=== PATIENT | male | born 1935 | race Caucasian/White ===

== ENCOUNTER 2017-02-07 21:12 | Observation (INO) | payer MEDICARE, OTHER ==
[2017-02-07] MEDS ORDERED: Morphine 4 MG/ML Syringe IVPUSH ONE (21:30)
[2017-02-07] MEDS ORDERED: Morphine 4 MG/ML Syringe IM ONE (21:53)
--- NOTE | 2017-02-07 21:53 | EDM.PDOC ---
ED HPI Trauma - General Chief Complaint: Lower Extremity Injury/Pain Stated Complaint: left hip injury post fall Time Seen by Provider: 02/07/17 21:25 Source: Reports: EMS - History of Present Illness INITIAL COMMENTS - FREE TEXT/NARRATIVE: Pt was going to step up on the sidewalk and missed and fell. He landed on his left hip. No LOC. bystander helped him into his pickup but he had so much pain that he couldn't move so ambulance was called. He is having pain in the left hip and pelvis. Left leg is rotated outward and shorter than the right. Has increase in pain with any movement. Did not take lasix today. Has edema 1 + bilaterally. Has small abrasion that is weeping to the right lower leg and the left lower leg. Last food and oral intake was about 1730 tonight. Symptom Onset Date: 02/07/17 Symptom Onset Time: 19:30 Occurred When: just prior to arrival Occurred Where: other Method of Injury: fall Severity: severe Pain/Injury Location: Reports: lower extremity, left Consciousness: Reports: no loss of consciousness, remembers incident Associated Symptoms: Reports: no other symptoms Allergies/ADRs: Allergies No Known Allergies Allergy (Verified 03/14/16 04:17) Home Medications: Ambulatory Orders Latanoprost 1 drop EYEBOTH BEDTIME 11/25/14 [Confirmed 03/07/16] Metoprolol Succinate [Toprol Xl] 100 mg PO DAILY 11/25/14 [Confirmed 03/07/16] Nitroglycerin [Nitrostat] 0.4 mg SL ASDIRECTED PRN 11/25/14 [Confirmed 03/07/16] Warfarin [Coumadin] 1.5 mg PO DAILY 11/25/14 [Confirmed 03/07/16] atorvaSTATin Calcium [Atorvastatin Calcium] 20 mg PO BEDTIME 11/25/14 [ Confirmed 03/07/16] Lisinopril [Zestril] 20 mg PO BID 02/18/16 [Confirmed 03/07/16] Pantoprazole [ProTONIX] 40 mg PO DAILY 03/07/16 [Confirmed 03/07/16] Furosemide 40 mg PO DAILY #30 03/08/16 [Confirmed 03/07/16] Metoprolol Succinate [Toprol XL] 50 mg PO BEDTIME 02/07/17 [Confirmed 02/07/17] Warfarin [Coumadin] 3 mg PO ASDIRECTED 02/07/17 [Confirmed 02/07/17] Past Medical History HEENT History: Reports: Cataract Cardiovascular History: Reports: Heart Failure, Hypertension, Pacemaker, Stents Gastrointestinal History: Reports: Cholelithiasis, GI bleed, PUD Musculoskeletal History: Reports: Gout Hematologic History: Reports: Blood transfusion(s) - Past Surgical History HEENT Surgical History: Reports: Cataract surgery Cardiovascular Surgical History: Reports: Pacer GI Surgical History: Reports: Appendectomy, Cholecystectomy, Colonoscopy Musculoskeletal Surgical History: Reports: Arthroscopic knee, Other (see below) Other Musculoskeletal Surgeries/Procedures:: back surgery Social & Family History - Family History Family Medical History: Noncontributory - Tobacco Use Smoking Status *Q: Former Smoker Years of Tobacco use: 60 Used Tobacco, but Quit: Yes Month Tobacco Last Used: 10/24 Second Hand Smoke Exposure: No - Alcohol Use Days Per Week of Alcohol Use: 0 - Recreational Drug Use Recreational Drug Use: No - Living Situation & Occupation Living situation: Reports: single, alone Occupation: retired Review of Systems - Review of Systems Review Of Systems: See Below Constitutional: Reports: no symptoms Eyes: Reports: no symptoms Ears: Reports: no symptoms Nose: Reports: no symptoms Mouth/Throat: Reports: no symptoms Respiratory: Reports: No Symptoms Cardiovascular: Reports: edema GI/Abdominal: Reports: No symptoms Musculoskeletal: Reports: leg pain (see HPI) Skin: Reports: bruising (to left hand, wrist, elbow.), wound (see HPI) Neurological: Denies: Confusion, Dizziness, Headache Psychiatric: Denies: confusion Trauma Exam - Physical Exam Exam: See Below Exam Limited By: No limitations General Appearance: Reports: alert, severe distress Head: Reports: atraumatic, normocephalic Ears: Reports: normal external exam, normal canal, normal TMs Nose: Reports: normal inspection Throat/Mouth: Reports: Normal inspection, Normal oropharynx, No airway compromise Neck: Reports: non-tender, full range of motion, normal alignment, normal inspection Respiratory Exam: Reports: no respiratory distress, lungs clear, normal breath sounds, chest non-tender Cardiovascular: Reports: normal peripheral pulses, regular rate, rhythm GI/Abdominal: Reports: normal bowel sounds, soft, non tender, no organomegaly Extremities: Reports: pedal edema (1) Neurologic: Reports: alert, oriented x 3 Skin: Reports: Normal color, Warm/dry - [place] Coma Score Best Eye Response ([place]): (4) open spontaneously Best Verbal Response ([place]): (5) oriented Best Motor Response ([place]): (6) obeys commands [place] Total: 15 Course - Vital Signs Last Recorded V/S: Last Vital Signs Temp 98.4 F 02/07/17 21:12 Pulse 82 02/07/17 21:12 Resp 20 02/07/17 21:12 BP 159/83 H 02/07/17 21:12 Pulse Ox 95 02/07/17 21:12 - Orders/Labs/Meds Orders: Active Orders 24 hr Category Date Time Status Hip Min 2V or 3V Lt [CR] Stat Exams 02/07/17 21:31 Ordered Meds: Medications Discontinued Medications Generic Name Dose Route Start Last Admin Trade Name Doe PRN Reason Stop Dose Admin Morphine Sulfate 4 mg 02/07/17 21:30 Morphine IVPUSH 02/07/17 21:31 ONETIME ONE - Re-Assessments/Exams Free Text/Narrative Re-Assessment/Exam: 02/07/17 22:[address] 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 Due to coumadin he will stay here tonight and be transferred at 0800 in the morning to orthopedics service. Discussed plan with son Baldomero and is in agreement as is the pt. Discussed with pt the admit and transfer, will give pain meds during the night to keep comfortable. Departure - Departure Time of Disposition: 22:33 Disposition: Refer to Observation Condition: fair Clinical Impression: Fracture of neck of femur, hip Fall Qualifiers: Encounter type: initial encounter Qualified Code(s): W19.XXXA - Unspecified fall, initial encounter Forms: ED Department Discharge - Problem List & Annotations (1) Fall SNOMED Code(s): 1604572, 017648795 Code(s): W19.XXXA - UNSPECIFIED FALL, INITIAL ENCOUNTER Status: Acute Priority: High Current Visit: Yes Qualifiers: Encounter type: initial encounter Qualified Code(s): W19.XXXA - Unspecified fall, initial encounter (2) Fracture of neck of femur, hip SNOMED Code(s): 0479705 Code(s): S72.009A - FRACTURE OF UNSP PART OF NECK OF UNSP FEMUR, INIT Status: Acute Priority: High Current Visit: Yes - My Orders Last 24 Hours: My Active Orders 02/07/17 21:31 Hip Min 2V or 3V Lt [CR] Stat - Assessment/Plan Admission H&P: Please use this note as an admission H&P Last 24 Hours: My Active Orders 02/07/17 21:31 Hip Min 2V or 3V Lt [CR] Stat Plan: Pt will be admitted for observation with pain control overnight. Transfer to [facility] in AM. Pt scheduled to leave by S ambulance at 0800.
[2017-02-07] MEDS ORDERED: Sodium Chloride 0.9% 10 ML Syringe FLUSH PRN (23:01)
[2017-02-07] MEDS ORDERED: Lactated Ringers 1,000 ML IV SCH (23:01)
[2017-02-07] MEDS ORDERED: Metoprolol Succinate 100 MG Tab.ER PO SCH (23:36)
[2017-02-07] MEDS: Morphine 2 MG/ML Syringe IVPUSH PRN (23:40)
[2017-02-08] MEDS: Lisinopril 20 MG Tab PO SCH ×2 (00:15→07:00)
[2017-02-08] MEDS: Furosemide 40 MG Tab PO SCH ×2 (00:15→07:00)
[2017-02-08] MEDS ORDERED: Furosemide 40 MG Tab ONE (00:23)
[2017-02-08] MEDS ORDERED: Lisinopril 20 MG Tab ONE (00:24)
[2017-02-08] MEDS: Morphine 2 MG/ML Syringe IVPUSH PRN ×3 (04:22→09:23)
[2017-02-08 04:35] VITALS: BP 166/68
--- NOTE | 2017-02-08 07:19 | PCM.DCSUM1 ---
Discharge Summary - Hospital Course Free Text/Narrative:: Pt fell last evening and has left femoral neck fracture. HPI Initial Comments: Pt fell last evening and sustained left femur fracture. No other injuries noted. No LOC with it. - Discharge Data Discharge Date: 02/08/17 Discharge Disposition: DC/Tfer to Acute Hospital 02 Condition: Good - Discharge Diagnosis/Problem(s) (1) Fall SNOMED Code(s): 3806413, 209126955 ICD Code: W19.XXXA - UNSPECIFIED FALL, INITIAL ENCOUNTER Status: Acute Priority: High Current Visit: Yes Qualifiers: Encounter type: initial encounter Qualified Code(s): W19.XXXA - Unspecified fall, initial encounter (2) Fracture of neck of femur, hip SNOMED Code(s): 0802389 ICD Code: S72.009A - FRACTURE OF UNSP PART OF NECK OF UNSP FEMUR, INIT Status: Acute Priority: High Current Visit: Yes - Patient Summary/Data Complications: none Consults: none Planned Operative Procedure(s) after DC: Is being transfered to [facility] for repair of left hip fracture. - Patient Instructions Diet: NPO Activity: Bedrest - Discharge Plan Home Medications: Home Meds Latanoprost 1 drop EYEBOTH BEDTIME 11/25/14 [History] Metoprolol Succinate [Toprol Xl] 100 mg PO DAILY 11/25/14 [History] Nitroglycerin [Nitrostat] 0.4 mg SL ASDIRECTED PRN 11/25/14 [History] Warfarin [Coumadin] 1.5 mg PO ASDIRECTED 11/25/14 [History] atorvaSTATin Calcium [Atorvastatin Calcium] 20 mg PO BEDTIME 11/25/14 [History] Lisinopril [Zestril] 20 mg PO BID 02/18/16 [History] Pantoprazole [ProTONIX] 40 mg PO DAILY 03/07/16 [History] Furosemide 40 mg PO DAILY #30 03/08/16 [Rx] Metoprolol Succinate [Toprol XL] 50 mg PO BEDTIME 02/07/17 [History] Warfarin [Coumadin] 3 mg PO ASDIRECTED 02/07/17 [History] Forms: ED Department Discharge - Discharge Summary/Plan Comment DC Time >30 min.: Yes Discharge Summary/Plan Comment: Plan is to transfer to [facility] per BLS ambulance for definitive care of left hip fracture. - Patient Data Vitals - Most Recent: Last Vital Signs Temp 98.4 F 02/08/17 04:00 Pulse 60 02/08/17 07:00 Resp 16 02/08/17 04:00 BP 186/76 H 02/08/17 07:00 Pulse Ox 95 02/08/17 04:00 Weight - Most Recent: 176 lb I&O - Last 24 hours: Intake & Output 02/07/17 02/08/17 02/08/17 22:59 06:59 14:59 Intake Total 639 Output Total 225 Balance 414 Lab Results - Last 24 hrs: Laboratory Results - last 24 hr 02/08/17 Range/Units 06:50 PT 31.9 H (9.7-12.3) SEC INR 2.86 H (0.92-1.18) Med Orders - Current: Current Medications Furosemide (Lasix) 40 mg PO DAILY [facility] Last Admin: 02/08/17 07:00 Dose: 40 mg Lactated Ringer's (Ringers, Lactated) 1,000 mls @ 75 mls/hr IV ASDIRECTED [facility] Last Admin: 02/07/17 23:39 Dose: 75 mls/hr Latanoprost (Xalatan 0.005% Ophth Soln) 0 ml EYEBOTH BEDTIME [facility] Lisinopril (Prinivil) 20 mg PO BID [facility] Last Admin: 02/08/17 07:00 Dose: 20 mg Metoprolol Succinate (Toprol Xl) 100 mg PO DAILY [facility] Last Admin: 02/08/17 07:00 Dose: 100 mg Metoprolol Succinate (Toprol Xl) 50 mg PO BEDTIME [facility] Last Admin: 02/07/17 23:45 Dose: 50 mg Morphine Sulfate (Morphine) 2 mg IVPUSH Q2H PRN PRN Reason: Pain (severe 7-10) Last Admin: 02/08/17 06:53 Dose: 2 mg Pantoprazole Sodium (Protonix) 40 mg PO DAILY [facility] Last Admin: 02/08/17 07:00 Dose: 40 mg Sodium Chloride (Saline Flush) 10 ml FLUSH ASDIRECTED PRN PRN Reason: Keep Vein Open Discontinued Medications Furosemide (Lasix) Confirm Administered Dose 40 mg .ROUTE .STK-MED ONE Stop: 02/08/17 00:24 Last Admin: 02/08/17 00:14 Dose: Not Given Lisinopril (Prinivil) Confirm Administered Dose 20 mg .ROUTE .STK-MED ONE Stop: 02/08/17 00:25 Last Admin: 02/08/17 00:15 Dose: Not Given Metoprolol Succinate (Toprol Xl) 100 mg PO DAILY NONA Morphine Sulfate (Morphine) 4 mg IVPUSH ONETIME ONE Stop: 02/07/17 21:31 Last Admin: 02/07/17 21:58 Dose: Not Given Morphine Sulfate (Morphine) 4 mg IM ONETIME ONE Stop: 02/07/17 21:54 Last Admin: 02/07/17 21:58 Dose: 4 mg *Q Meaningful Use (DIS) - VTE *Q VTE Criteria *Q: - Stroke *Q Stroke Criteria *Q: - AMI *Q AMI Criteria *Q:
[2017-02-08] MEDS ORDERED: Morphine 2 MG/ML Syringe IVPUSH ONE (07:26)
[2017-02-08] MEDS ORDERED: Metoprolol Succinate 100 MG Tab.ER PO SCH ×2 (08:00)
[2017-02-08] MEDS ORDERED: Pantoprazole 40 MG Tab.CR PO SCH (08:00)
[2017-02-08] MEDS ORDERED: Latanoprost 0.005% Ophth Soln 2.5 ML Bottle EYEBOTH SCH (20:00)
== END 2017-02-08 09:15 ==
LOC: CC.ED 21:12 → CC.MS 22:58 → UNDOADMOB 22:58 → CC.MS 23:01
PROVIDERS: ADMIT Physician Assistant Medical; ATTEND Family Medicine
DX: S72.002A Fracture of unspecified part of neck of left femur, initial encounter for closed fracture (principal); I10 Essential (primary) hypertension; I50.9 Heart failure, unspecified; W19.XXXA Unspecified fall, initial encounter; Z79.01 Long term (current) use of anticoagulants; Z79.899 Other long term (current) drug therapy; Z90.49 Acquired absence of other specified parts of digestive tract; Z95.0 Presence of cardiac pacemaker; Z98.890 Other specified postprocedural states; Z87.891 Personal history of nicotine dependence
CPT/HCPCS: 36415; 51702; 73502; 80048; 85025; 85610; 93005; 93010; 96372; 96374; 96376; 99217; 99220; 99285; A9270; G0378; J2270; J7120

== ENCOUNTER 2017-03-19 04:23 | Inpatient (IN) | payer MEDICARE, OTHER ==
--- NOTE | 2017-03-19 06:26 | EDM.PDOC ---
ED HPI GENERAL MEDICAL PROBLEM - General Chief Complaint: General Stated Complaint: NAUSEA Time Seen by Provider: 03/19/17 05:30 Source of Information: Reports: Patient, EMS notes reviewed History Limitations: Reports: No limitations - History of Present Illness INITIAL COMMENTS - FREE TEXT/NARRATIVE: Elza is an 81 yo male who presents to the ER via [facility] with complaints of nausea, shortness of breath and elevated blood pressure. [facility] staff noted states his initial blood pressure was 207/137. Upon EMS arrival blood pressure improved to 169/96. Elza states he has been feeling a little short of breath the last few days and constipated. His last bowel movement was on Saturday. He has a history of recent hip fracture and has been getting pain medications which he feels has been plugging him up. States he has been passing a lot of gas. Onset: gradual - Related Data Allergies Allergy/AdvReac Type Severity Reaction Status Date / Time Penicillins Allergy Cannot Verified 03/19/17 04:32 Remember vitamin K2 Allergy Cannot Verified 03/19/17 04:32 Remember Home Meds: Home Meds Metoprolol Succinate [Toprol Xl] 100 mg PO DAILY 11/25/14 [History] Nitroglycerin [Nitrostat] 0.4 mg SL ASDIRECTED PRN 11/25/14 [History] Warfarin [Coumadin] 1 mg PO ASDIRECTED 11/25/14 [History] atorvaSTATin Calcium [Atorvastatin Calcium] 20 mg PO BEDTIME 11/25/14 [History] Lisinopril [Zestril] 20 mg PO BID 02/18/16 [History] Pantoprazole [ProTONIX] 40 mg PO DAILY 03/07/16 [History] Metoprolol Succinate [Toprol XL] 50 mg PO BEDTIME 02/07/17 [History] Warfarin [Coumadin] 1.5 mg PO ASDIRECTED 02/07/17 [History] Ferrous Sulfate 325 mg PO DAILY 03/19/17 [History] Latanoprost [Xalatan 0.005% Ophth Soln] 1 drop EYEBOTH DAILY 03/19/17 [History] Magnesium Oxide 500 mg PO DAILY 03/19/17 [History] Sennosides/Docusate Sodium [Senna-Docusate Sodium] 1 tab PO BID 03/19/17 [ History] traMADol HCl [Tramadol HCl] 50 mg PO QID 03/19/17 [History] Past Medical History HEENT History: Reports: Cataract Cardiovascular History: Reports: Heart Failure, Hypertension, Pacemaker, Stents Gastrointestinal History: Reports: Cholelithiasis, GI bleed, PUD Musculoskeletal History: Reports: Gout Hematologic History: Reports: Blood transfusion(s) - Past Surgical History HEENT Surgical History: Reports: Cataract surgery Cardiovascular Surgical History: Reports: Pacer GI Surgical History: Reports: Appendectomy, Cholecystectomy, Colonoscopy Musculoskeletal Surgical History: Reports: Arthroscopic knee, Hip replacement, Other (see below) Other Musculoskeletal Surgeries/Procedures:: back surgery Social & Family History - Family History Family Medical History: Noncontributory - Tobacco Use Smoking Status *Q: Unknown Ever Smoked Years of Tobacco use: 60 Used Tobacco, but Quit: Yes Month Tobacco Last Used: 10/24 Second Hand Smoke Exposure: No - Alcohol Use Days Per Week of Alcohol Use: 0 - Recreational Drug Use Recreational Drug Use: No - Living Situation & Occupation Living situation: Reports: single, alone Occupation: retired ED ROS GENERAL - Review of Systems Review Of Systems: See Below Constitutional: Reports: diaphoresis. Denies: fever, chills HEENT: Reports: No symptoms Respiratory: Reports: Shortness of Breath. Denies: Wheezing, Cough Cardiovascular: Reports: Dyspnea on exertion, Edema, Orthopnea. Denies: Chest pain, Palpitations GI/Abdominal: Reports: Constipation, Nausea. Denies: Bloody stool, Diarrhea, Vomiting : Reports: no symptoms Musculoskeletal: Reports: leg pain (s/p hip fracture) Skin: Reports: diaphoresis Neurological: Reports: No Symptoms ED EXAM, GENERAL - Physical Exam Exam: See Below Exam Limited By: No limitations General Appearance: alert, no apparent distress Ears: normal external exam, normal canal, hearing grossly normal Nose: normal inspection, no blood Throat/Mouth: Normal inspection, Normal lips, Normal voice, No airway compromise Head: atraumatic, normocephalic Neck: normal inspection, supple Respiratory/Chest: no respiratory distress, decreased breath sounds (bilateral bases). No: rhonchi, wheezing Cardiovascular: normal peripheral pulses, regular rate, rhythm, systolic murmur GI/Abdominal: normal bowel sounds, soft, non tender, no organomegaly, no distention, no mass Extremities: pedal edema (2+ bilateral). No: increased warmth Neurological: alert, oriented, normal cognition, no motor/sensory deficits Psychiatric: normal affect, normal mood Skin Exam: Warm, Dry, Intact. No: Diaphoretic, Mottled EKG INTERPRETATION EKG Date: 03/19/17 Time: 05:00 Rhythm: other (paced) Course - Vital Signs Last Recorded V/S: Last Vital Signs Temp 97 F 03/19/17 05:05 Pulse 70 03/19/17 05:05 Resp 20 03/19/17 05:05 BP 151/72 H 03/19/17 05:05 Pulse Ox 93 L 03/19/17 05:05 - Orders/Labs/Meds Orders: Active Orders 24 hr Category Date Time Status Patient Status Manage Transfer [TRANSFER] Routine ADT 03/19/17 05:52 Ordered Cardiac Monitoring [RC] . DIRECTED Care 03/19/17 05:52 Active Chest 1V Frontal [CR] Stat Exams 03/19/17 04:45 Taken Resuscitation Status Routine Resus Stat 03/19/17 05:55 Ordered Labs: Laboratory Tests 03/19/17 03/19/17 03/19/17 Range/Units 04:55 04:55 04:55 WBC 10.6 H (5.0-10.0) 10^3/uL RBC 3.76 L (4.50-6.00) 10^6/uL Hgb 10.6 L (14.0-18.0) g/dL Hct 33.5 L (40.0-54.0) % MCV 89.1 (82.0-94.0) fL MCH 28.2 (27.0-32.0) pg MCHC 31.6 L (33.0-38.0) g/dL RDW Coeff of Karlo 15.4 H (11.0-15.0) % Plt Count 254 (150-400) 10^3/uL Neut % (Auto) 79.0 (35-85) % Lymph % (Auto) 11.4 (10-55) % [place] % (Auto) 7.1 (0-16) % Eos % (Auto) 2.1 (0-5) % Baso % (Auto) 0.4 (0-3) % Neut # (Auto) 8.41 H (1.80-7.00) 10^3/uL Lymph # (Auto) 1.21 (1.00-4.80) 10^3/uL [place] # (Auto) 0.75 (0.00-0.80) 10^3/uL Eos # (Auto) 0.22 (0.00-0.45) 10^3/uL Baso # (Auto) 0.04 10^3/uL PT 27.4 H (9.7-12.3) SEC INR 2.47 H (0.92-1.18) Sodium 140 (136-145) mEq/L Potassium 4.0 (3.5-5.0) mEq/L Chloride 103 (98-106) mEq/L Carbon Dioxide 28 (21-32) mmol/L BUN 32 H (7-18) mg/dL Creatinine 1.3 (0.7-1.3) mg/dL Est Cr Clr Drug Dosing 46.66 mL/min Estimated GFR (MDRD) 53 L (>=60) mL/min Glucose 120 H (75-99) mg/dL Calcium 8.1 L (8.4-10.1) mg/dL Total Bilirubin 0.7 (0.0-1.0) mg/dL AST 24 (15-37) U/L ALT 15 (12-78) U/L Alkaline Phosphatase 147 H (46-116) U/L Creatine Kinase 41 (35-232) U/L Troponin I 0.070 H (0.00-0.06) ng/mL Total Protein 6.6 (6.4-8.2) g/dL Albumin 2.8 L (3.4-5.0) g/dL Departure - Departure Time of Disposition: 06:31 Disposition: Admitted As Inpatient 65 Clinical Impression: CHF, Congestive heart failure, Elevated troponin, Constipation Forms: ED Department Discharge - Problem List & Annotations (1) CHF, Congestive heart failure SNOMED Code(s): 36769944 Code(s): I50.9 - HEART FAILURE, UNSPECIFIED Status: Acute (2) Constipation SNOMED Code(s): 01180889 Code(s): K59.00 - CONSTIPATION, UNSPECIFIED Status: Acute Qualifiers: Constipation type: unspecified constipation type Qualified Code(s): K59.00 - Constipation, unspecified (3) Elevated troponin SNOMED Code(s): 010964220, 167904634 Code(s): R74.8 - ABNORMAL LEVELS OF OTHER SERUM ENZYMES Status: Acute - Problem List Review Problem List Initiated/Reviewed/Updated: Yes - My Orders Last 24 Hours: My Active Orders 03/19/17 04:45 Chest 1V Frontal [CR] Stat 03/19/17 05:52 Patient Status Manage Transfer [TRANSFER] Routine Cardiac Monitoring [RC] . DIRECTED 03/19/17 05:55 Resuscitation Status Routine - Assessment/Plan Last 24 Hours: My Active Orders 03/19/17 04:45 Chest 1V Frontal [CR] Stat 03/19/17 05:52 Patient Status Manage Transfer [TRANSFER] Routine Cardiac Monitoring [RC] . DIRECTED 03/19/17 05:55 Resuscitation Status Routine Plan: Will admit to Dr. An's services under acute care. Chest x-ray shows CHF exacerbation with consolidation in right lower lobe. IV Lasix to be started. Will repeat cardiac enzymes in 4 hours.
[2017-03-19] MEDS ORDERED: Ondansetron 4 MG/2 ML SDV IV PRN (06:45)
[2017-03-19] MEDS ORDERED: Docusate Sodium 100 MG Cap PO PRN (06:45)
[2017-03-19] MEDS ORDERED: Sodium Chloride 0.9% 10 ML Syringe FLUSH PRN (06:45)
[2017-03-19] MEDS ORDERED: Nitroglycerin 0.4 MG Tab.SL SL PRN (06:45)
[2017-03-19] MEDS ORDERED: Magnesium Hydroxide 400 MG/5 ML Susp 30 ML Cup PO PRN (06:45)
[2017-03-19] MEDS ORDERED: Furosemide 20 MG/2 ML VIAL IVPUSH SCH (07:00)
[2017-03-19] MEDS: Ferrous Sulfate 324 MG Tab.EC PO SCH (08:14)
[2017-03-19] MEDS: Lisinopril 20 MG Tab PO SCH ×2 (08:15→19:58)
[2017-03-19] MEDS: Pantoprazole 40 MG Tab.CR PO SCH (08:15)
[2017-03-19] MEDS: Metoprolol Succinate 100 MG Tab.ER PO SCH (08:16)
[2017-03-19] MEDS: traMADol 50 MG Tab PO SCH ×5 (08:16→20:04)
[2017-03-19] MEDS ORDERED: Furosemide 20 MG/2 ML VIAL IVPUSH ONE (08:25)
[2017-03-19] MEDS: Furosemide 40 MG/4 ML VIAL IVPUSH SCH (15:48)
[2017-03-19] MEDS ORDERED: Furosemide 40 MG/4 ML VIAL IVPUSH SCH ×2 (16:00→20:00)
[2017-03-19] MEDS: Metoprolol Succinate 25 MG Tab.ER PO SCH (19:57)
[2017-03-19] MEDS: atorvaSTATin 20 MG Tab PO SCH (19:58)
[2017-03-19] MEDS: Latanoprost 0.005% Ophth Soln 2.5 ML Bottle EYEBOTH SCH (20:04)
[2017-03-20] MEDS: Pantoprazole 40 MG Tab.CR PO SCH (06:23)
[2017-03-20] MEDS: Ferrous Sulfate 324 MG Tab.EC PO SCH (07:44)
[2017-03-20] MEDS: Furosemide 40 MG/4 ML VIAL IVPUSH SCH ×2 (07:45→17:09)
[2017-03-20] MEDS: Lisinopril 20 MG Tab PO SCH ×2 (08:38→19:58)
[2017-03-20] MEDS: Metoprolol Succinate 100 MG Tab.ER PO SCH (08:38)
[2017-03-20] MEDS: traMADol 50 MG Tab PO SCH ×3 (10:19→17:08)
--- NOTE | 2017-03-20 15:22 | PCM.PN ---
- General Info Date of Service: 03/20/17 Admission Dx/Problem (Free Text): CHF Functional Status: Reports: pain controlled, tolerating diet, ambulating, urinating - Review of Systems General: Reports: Weakness, Fatigue. Denies: Fever HEENT: Reports: no symptoms Pulmonary: Reports: shortness of breath Cardiovascular: Denies: Chest Pain, Palpitations, Lightheadedness Gastrointestinal: Denies: Abdominal pain, Decreased appetite, Diarrhea, Nausea, Vomiting Genitourinary: Reports: frequency Musculoskeletal: Reports: no symptoms Skin: Reports: no symptoms Neurological: Reports: No Symptoms - Patient Data Vitals - most recent: Last Vital Signs Temp 96.8 F 03/20/17 12:00 Pulse 54 L 03/20/17 12:00 Resp 18 03/20/17 12:00 BP 146/65 H 03/20/17 12:00 Pulse Ox 95 03/20/17 12:00 Weight - most recent: 177 lb 14.4 oz I&O - last 24 hours: Intake & Output 03/20/17 03/20/17 03/20/17 06:59 14:59 22:59 Intake Total 100 Output Total 200 Balance -100 Lab Results last 24 hrs: Laboratory Results - last 24 hr 03/20/17 03/20/17 Range/Units 08:40 08:40 WBC 8.8 (5.0-10.0) 10^3/uL RBC 3.77 L (4.50-6.00) 10^6/uL Hgb 10.5 L (14.0-18.0) g/dL Hct 34.3 L (40.0-54.0) % MCV 91.0 (82.0-94.0) fL MCH 27.9 (27.0-32.0) pg MCHC 30.6 L (33.0-38.0) g/dL RDW Coeff of Karlo 16.1 H (11.0-15.0) % Plt Count 259 (150-400) 10^3/uL Neut % (Auto) 68.0 (35-85) % Lymph % (Auto) 21.0 (10-55) % [place] % (Auto) 8.3 (0-16) % Eos % (Auto) 2.1 (0-5) % Baso % (Auto) 0.6 (0-3) % Neut # (Auto) 5.95 (1.80-7.00) 10^3/uL Lymph # (Auto) 1.84 (1.00-4.80) 10^3/uL [place] # (Auto) 0.73 (0.00-0.80) 10^3/uL Eos # (Auto) 0.18 (0.00-0.45) 10^3/uL Baso # (Auto) 0.05 10^3/uL Sodium 142 (136-145) mEq/L Potassium 4.7 (3.5-5.0) mEq/L Chloride 103 (98-106) mEq/L Carbon Dioxide 32 (21-32) mmol/L BUN 30 H (7-18) mg/dL Creatinine 1.3 (0.7-1.3) mg/dL Est Cr Clr Drug Dosing 46.66 mL/min Estimated GFR (MDRD) 53 L (>=60) mL/min Glucose 136 H (75-99) mg/dL Calcium 8.1 L (8.4-10.1) mg/dL Med Orders - Current: Current Medications Atorvastatin Calcium (Lipitor) 20 mg PO BEDTIME [facility] Last Admin: 03/19/17 19:58 Dose: 20 mg Docusate Sodium (Colace) 100 mg PO BID PRN PRN Reason: Constipation Ferrous Sulfate (Ferrous Sulfate) 324 mg PO DAILY [facility] Last Admin: 03/20/17 07:44 Dose: 324 mg Furosemide (Lasix) 40 mg IVPUSH BIDDIURETIC [facility] Last Admin: 03/20/17 07:45 Dose: 40 mg Latanoprost (Xalatan 0.005% Ophth Soln) 0 ml EYEBOTH BEDTIME [facility] Last Admin: 03/19/17 20:04 Dose: 2 drop Lisinopril (Prinivil) 20 mg PO BID [facility] Last Admin: 03/20/17 08:38 Dose: 20 mg Magnesium Hydroxide (Milk Of Magnesia) 30 ml PO Q12H PRN PRN Reason: Constipation Magnesium Oxide (Magnesium Oxide) 500 mg PO DAILY [facility] Last Admin: 03/20/17 07:44 Dose: 500 mg Metoprolol Succinate (Toprol Xl) 100 mg PO DAILY [facility] Last Admin: 03/20/17 08:38 Dose: 100 mg Metoprolol Succinate (Toprol Xl) 50 mg PO BEDTIME [facility] Last Admin: 03/19/17 19:57 Dose: 50 mg Nitroglycerin (Nitrostat) 0.4 mg SL ASDIRECTED PRN PRN Reason: Chest Pain Ondansetron HCl (Zofran) 4 mg IV Q4H PRN PRN Reason: Nausea/Vomiting Pantoprazole Sodium (Protonix) 40 mg PO ACBREAKFAST [facility] Last Admin: 03/20/17 06:23 Dose: 40 mg Senna/Docusate Sodium (Senna Plus) 1 tab PO BID [facility] Last Admin: 03/20/17 07:45 Dose: 1 tab Sodium Chloride (Saline Flush) 10 ml FLUSH ASDIRECTED PRN PRN Reason: Keep Vein Open Tramadol HCl (Ultram) 50 mg PO QID [facility] Last Admin: 03/20/17 13:05 Dose: Not Given Warfarin Sodium (Coumadin) 1 mg PO MoWeFr [facility] Last Admin: 03/20/17 13:09 Dose: 1 mg Warfarin Sodium (Coumadin) 1.5 mg PO SuTuThSa [facility] Last Admin: 03/19/17 11:35 Dose: 1.5 mg Discontinued Medications Furosemide (Lasix) 20 mg IVPUSH Q24H [facility] Last Admin: 03/19/17 07:11 Dose: 20 mg Furosemide (Lasix) 40 mg IVPUSH Q24H [facility] Stop: 03/19/17 16:00 Furosemide (Lasix) 20 mg IVPUSH ONETIME ONE Stop: 03/19/17 08:26 Last Admin: 03/19/17 08:36 Dose: 20 mg Furosemide (Lasix) 40 mg IVPUSH BID [facility] - Exam General: alert, oriented HEENT: Mucous membr. moist/pink Neck: supple Lungs: Decreased breath sounds Cardiovascular: Regular Rate, Regular Rhythm Abdomen: bowel sounds present, soft, no tenderness Extremities: edema (1-2+ pitting edema, 1+ RLE) Skin: warm, dry Psy/Mental Status: alert, normal affect, normal mood - Problem List & Annotations (1) CHF, Congestive heart failure SNOMED Code(s): 19206124 Code(s): I50.9 - HEART FAILURE, UNSPECIFIED Status: Acute Priority: High Current Visit: Yes - Problem List Review Problem List Initiated/Reviewed/Updated: Yes - My Orders Last 24 Hours: My Active Orders 03/19/17 16:00 Furosemide [Lasix] 40 mg IVPUSH BIDDIURETIC 03/20/17 08:56 Daily Weight [Height and Weight] [RC] DAILY 03/21/17 05:11 BASIC METABOLIC PANEL,BMP [CHEM] Routine PRO B-TYPE NATRIUR PEPT,BNPPRO [CHEM] Routine - Assessment Assessment:: CHF - Plan Plan:: Patient is doing well today. States breathing is much easier. Able to ambulate some in the room without as much dyspnea. Has been voiding frequently since initiation of IV Lasix at 40 mg BID. Labs stable today, creatinine 1.3. Serial troponins remained stable. WBC stable. Edema noted at 1-2+ pitting in LLE, 1+ RLE. Will obtain daily weights to response to IV Lasix as patient incontinent at times and difficult to obtain accurate I & O's. Will continue IV Lasix. Encourage ambulation as tolerated. Repeat ProBNP in am. Possibly return back to the residential in next 24-48 hours.
[2017-03-20] MEDS: Polyethylene Glycol 3350 Powder 17 GM Packet PO SCH (17:10)
[2017-03-20] MEDS ORDERED: traMADol 50 MG Tab PO PRN (19:45)
[2017-03-20] MEDS: atorvaSTATin 20 MG Tab PO SCH (19:58)
[2017-03-20] MEDS: Metoprolol Succinate 25 MG Tab.ER PO SCH (19:58)
[2017-03-20] MEDS: Latanoprost 0.005% Ophth Soln 2.5 ML Bottle EYEBOTH SCH (19:58)
[2017-03-21] MEDS: Pantoprazole 40 MG Tab.CR PO SCH (06:01)
[2017-03-21] MEDS: Furosemide 40 MG/4 ML VIAL IVPUSH SCH ×2 (08:38→17:41)
[2017-03-21] MEDS: Polyethylene Glycol 3350 Powder 17 GM Packet PO SCH (08:39)
[2017-03-21] MEDS: Metoprolol Succinate 100 MG Tab.ER PO SCH (08:39)
[2017-03-21] MEDS: Ferrous Sulfate 324 MG Tab.EC PO SCH (08:39)
[2017-03-21] MEDS: Lisinopril 20 MG Tab PO SCH ×2 (08:39→20:00)
--- NOTE | 2017-03-21 11:40 | PN ---
DATE: 03/21/2017 S: Elza is an 81-year-old male, who was admitted to the hospital on 03/19/2017 secondary to the congestive heart failure with an elevated troponin and constipation. He states that he is doing quite well. He states yesterday he was abusing the bathroom quite on a frequent basis. He states he feels like he has lost a little bit of weight. He does have 2 inguinal hernia, does state that given little bit of discomfort last night, however, that did subside after he did put some ice on it. He otherwise states he does not really have any shortness of breath. No chest pain. No palpitations in his chest. He has been getting up and using a walker for some strengthening. He admits bowel movements have been doing quite well. He did have a large bowel movement after an enema on Saturday night. He states that he is overall feeling much better. O: VITAL SIGNS: Blood pressure is 145/70, temperature 97.5, O2 is 94% to 96% on room air, respirations 16, pulse is 61. GENERAL: Pleasant, cooperative male, does not really appear to be in any acute distress, not appear to be acutely ill. He is standing up, uses walker upon my entrance into the room. HEENT: Grossly unremarkable. LUNGS: Clear to auscultation. There is slightly diminished in bilateral bases. No wheezes, rhonchi, or rales. CARDIAC: Regular rate and rhythm. ABDOMEN: Soft. Bowel sounds are present. Normoactive. No organomegaly. No guarding or rigidity. He does have 2 bilateral reducible inguinal hernias. EXTREMITIES: Pedal pulses are present equal bilaterally. 1+ pedal edema in the left lower extremity and 2+ in the right. LABORATORY DATA: Potassium was 3.4 this morning. ProBNP did drop down at 22,561 from 32,902. Otherwise, laboratory work is fairly stable. ASSESSMENT: CONGESTIVE HEART FAILURE WITH HYPOKALEMIA. P: We will again closely monitor today. He will get oral potassium supplementation. We will give him 10 mEq of potassium chloride daily. We will also look into stopping his IV Lasix tomorrow morning and see how he does with this. He has been, on again, quite well. Repeat a panel-8 in the morning as well along with the chest x-ray. I did discuss with him if he is feeling much better tomorrow he may be able to be discharged home on oral diuretic medications. He verbalized complete understanding of this. We will follow-through tomorrow and hopefully plan for discharge tomorrow. OSWALD /[id number]
[2017-03-21] MEDS: Potassium Chloride 10 MEQ Tab.ER PO SCH (16:30)
[2017-03-21] MEDS: atorvaSTATin 20 MG Tab PO SCH (20:00)
[2017-03-21] MEDS: Latanoprost 0.005% Ophth Soln 2.5 ML Bottle EYEBOTH SCH (20:00)
[2017-03-21] MEDS: Metoprolol Succinate 25 MG Tab.ER PO SCH (20:00)
[2017-03-22] MEDS: Pantoprazole 40 MG Tab.CR PO SCH (06:14)
[2017-03-22] MEDS: Ferrous Sulfate 324 MG Tab.EC PO SCH (07:41)
[2017-03-22] MEDS: Metoprolol Succinate 100 MG Tab.ER PO SCH (07:42)
[2017-03-22] MEDS: Potassium Chloride 10 MEQ Tab.ER PO SCH (07:43)
[2017-03-22] MEDS: Lisinopril 20 MG Tab PO SCH (07:43)
[2017-03-22 07:44] VITALS: BP 150/74
[2017-03-22] MEDS: Polyethylene Glycol 3350 Powder 17 GM Packet PO SCH ×2 (07:44→07:47)
[2017-03-22] MEDS ORDERED: Potassium Chloride 10 MEQ Tab.ER PO SCH (08:00)
[2017-03-22] MEDS: Furosemide 40 MG/4 ML VIAL IVPUSH SCH (08:37)
--- NOTE | 2017-03-25 09:12 | DISCH ---
ADMISSION DIAGNOSIS: Acute exacerbation of chronic systolic congestive heart failure. DISCHARGE DIAGNOSIS: ACUTE EXACERBATION OF CHRONIC SYSTOLIC CONGESTIVE HEART FAILURE. HISTORY: The patient is an 81-year-old, status post a recent hip fracture. Postoperatively, came back to [facility] for rehab. Apparently, he was discharged without his diuretics and he has a history of class II to III heart failure. He started having increasing shortness of breath, he was up about 15 pounds since his admission and was in acute failure when he saw Johnny Smith in the emergency room. His BNP at that time was over 30,000 and the patient had evidence of acute heart failure on his chest x-ray. He was admitted for diuresis. HOSPITAL COURSE: The patient was admitted, given IV Lasix, 40 mg IV b.i.d. He is diuresed well. 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 He feels no more shortness of breath. He has had no vital sign irregularities. He does have a slight drop in his potassium at 3.4 and we will increase his potassium slightly. We will have a followup panel-8 next week while the patient is back at the [facility] and at this time he looks clinically stable and will put him back on his 40 mg b.i.d. of Lasix, which he was not discharged from at the time of his hip surgery. COMPLICATIONS: During the stay were none. CONSULTATIONS: None. DISPOSITION: Discharged back to [facility] of the [facility]. FELICITA/LESLY /[id number]
== END 2017-03-22 11:42 | disposition home or self-care (01) | DRG 293 ==
LOC: CC.ED 04:23 → CC.MS 05:52 → UNDOADMIN 06:42 → CC.MS 06:42 → UNDOADMIN 06:45 → CC.MS 06:45 → UNDODISIN 03-22 11:42
PROVIDERS: ADMIT Physician Assistant Medical; ATTEND Family Medicine
DX: I11.0 Hypertensive heart disease with heart failure (principal); I50.9 Heart failure, unspecified; I10 Essential (primary) hypertension; E87.6 Hypokalemia; R74.8 Abnormal levels of other serum enzymes; K59.00 Constipation, unspecified; Z95.0 Presence of cardiac pacemaker; M10.9 Gout, unspecified; Z96.649 Presence of unspecified artificial hip joint; Z87.891 Personal history of nicotine dependence; Z79.01 Long term (current) use of anticoagulants; Z79.899 Other long term (current) drug therapy; Z88.0 Allergy status to penicillin; Z88.8 Allergy status to other drugs, medicaments and biological substances
CPT/HCPCS: 36415; 71010; 71020; 74020; 80048; 80053; 81001; 82550; 83880; 84484; 85025; 85610; 93005; 93010; 97110-GP; 97161-GP; 99284; A9270-GY; J1940

== ENCOUNTER → 2019-12-11 | Day surgery (SDC) | payer MEDICARE, OTHER ==
[~2019-12-11] MED LIST: Lactated Ringers 1,000 ML IV SCH; Propofol 200 MG/20 ML SDV IV ONE
[2019-12-11 11:01] VITALS: BP 124/58; PULSE 59
--- NOTE | 2019-12-11 13:12 | OR ---
DATE OF OPERATION: 12/11/2019 PREOPERATIVE DIAGNOSIS: 1. DYSPEPSIA. 2. GASTROESOPHAGEAL REFLUX DISEASE. POSTOPERATIVE DIAGNOSIS: FUNDAL GASTRITIS. SURGEON: Rodney An MD PROCEDURE: EGD WITH BIOPSY X1, TY. ANESTHESIA: MAC. COMPLICATIONS: None. SPECIMEN: 1. Antral TY. 2. Fundal biopsy x1. FINDINGS: 1. Full-length EGD. 2. Mild chronic fundal gastritis without ulceration or erosion. RECOMMENDATIONS: The patient has been taken off any and all anti-inflammatories and is treated with PPI which should heal him nicely. INDICATIONS: The patient has a history of Parkinson's. He has some chronic GI dysmotility, but has been having worsening postprandial abdominal dyspepsia. He and his daughter who is his medical [id number] requested EGD even after offer of empirical therapy. DESCRIPTION OF PROCEDURE: The patient was prepped and draped, placed in the left lateral decubitus position. A lubricated Olympus gastroscope was inserted over a bit, advanced to the cricopharyngeal area, and with patient's swallow, easily intubated in the esophagus. The esophageal lining appeared benign in its entire course. The Z-line was crisp around 39 cm. No spontaneous reflux seen. No distal esophagitis, stricturing, ulceration, or Walker's changes. The scope was advanced into the stomach, through the pylorus, and into the 2nd portion of the duodenum. This and the duodenal bulb were benign. The scope was brought back into the stomach, retroflexed. The upper fundus and cardia appeared unremarkable. Most of the main body of the fundus had chronic and mild gastritis changes without any active or acute ulceration or erosion. Biopsy was taken along with an antral TY. No other lesions were found. Air was suctioned, scope removed without complication. FELICITA/LESLY /[id number] CC: Cathy Mosher [facility]
== END ==
LOC: CC.SDS 08:52
PROVIDERS: ATTEND Family Medicine
DX: K29.50 Unspecified chronic gastritis without bleeding (principal); K21.9 Gastro-esophageal reflux disease without esophagitis; G20 Parkinson's disease; M10.9 Gout, unspecified; Z88.0 Allergy status to penicillin; Z88.8 Allergy status to other drugs, medicaments and biological substances; Z79.01 Long term (current) use of anticoagulants; Z79.891 Long term (current) use of opiate analgesic; Z79.899 Other long term (current) drug therapy
CPT/HCPCS: 00731; 36415; 43239; 85610; 87081; J2704; J7120

== ENCOUNTER 2020-10-13 23:54 | Emergency (ER) | payer MEDICARE, OTHER ==
[2020-10-14 00:14] LABS: PTT,PARTIAL THROMBOPLSTIN TIME 27.4 SEC (23.2-32.3)
[2020-10-14 00:15] LABS: CHLORIDE,CL 101 mEq/L (98-106); SODIUM,NA 138 mEq/L (136-145)
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
[2020-10-14] MEDS: HYDROmorphone 1 MG/ML Syringe IVPUSH ONE ×2 (00:51→02:41)
[2020-10-14] MEDS: Sodium Chloride 0.45% 1,000 ML IV SCH (01:34)
[2020-10-14 03:10] VITALS: BP 145/69; PULSE 78
== END 2020-10-14 02:45 ==
LOC: CC.ED 23:54
DX: S72.011A Unspecified intracapsular fracture of right femur, initial encounter for closed fracture (principal); S51.011A Laceration without foreign body of right elbow, initial encounter; S61.411A Laceration without foreign body of right hand, initial encounter; I13.0 Hypertensive heart and chronic kidney disease with heart failure and stage 1 through stage 4 chronic kidney disease, or unspecified chronic kidney disease; N18.9 Chronic kidney disease, unspecified; I50.9 Heart failure, unspecified; G20 Parkinson's disease; Z88.0 Allergy status to penicillin; Z88.8 Allergy status to other drugs, medicaments and biological substances; Z79.899 Other long term (current) drug therapy; Z79.01 Long term (current) use of anticoagulants; W19.XXXA Unspecified fall, initial encounter; Y92.121 Bathroom in nursing home as the place of occurrence of the external cause; Z20.828 Contact with and (suspected) exposure to other viral communicable diseases
CPT/HCPCS: 36415; 70450; 80053; 81001; 82150; 85025; 85610; 85730; 93005; 96374; 96376; 99284; 99285-25; J1170; J7030; U0002

== ENCOUNTER 2022-02-02 22:40 | Inpatient (IN) | payer MEDICARE, OTHER ==
[2022-02-02] MEDS ORDERED: cefTRIAXone 2 GM Vial IVPUSH ONE (22:59)
[2022-02-02] MEDS ORDERED: Sodium Chloride 0.9% 1,000 ML IV SCH (23:00)
[2022-02-03] MEDS ORDERED: Docusate Sodium 100 MG Cap PO PRN (00:44)
[2022-02-03] MEDS: Sodium Chloride 0.9% 1,000 ML IV SCH ×2 (01:26→10:35)
[2022-02-03] MEDS: Acetaminophen 325 MG Tab PO PRN ×2 (01:27→19:06)
[2022-02-03] MEDS: Azithromycin 500 MG in Sodium Chloride 0.9% 250 ML IV SCH ×2 (01:27→23:59)
[2022-02-03] MEDS ORDERED: Furosemide 100 MG/10 ML SDV IVPUSH ONE (08:02)
[2022-02-03] MEDS: Acetaminophen 500 MG Tab PO SCH (08:15)
[2022-02-03] MEDS: Metoprolol Succinate 100 MG Tab.ER PO SCH (08:45)
[2022-02-03] MEDS: Latanoprost 0.005% Ophth Soln 2.5 ML Bottle EYEBOTH SCH (19:06)
[2022-02-03] MEDS: atorvaSTATin 20 MG Tab PO SCH (19:06)
[2022-02-04] MEDS ORDERED: Pantoprazole 40 MG Vial IVPUSH ONE (07:43)
[2022-02-04] MEDS: Acetaminophen 500 MG Tab PO SCH (07:51)
[2022-02-04] MEDS: Furosemide 80 MG Tab PO SCH (07:54)
[2022-02-04] MEDS: Metoprolol Succinate 100 MG Tab.ER PO SCH (07:55)
[2022-02-04] MEDS ORDERED: Metoprolol Succinate 25 MG Tab.ER PO SCH (08:00)
[2022-02-04] MEDS ORDERED: Docusate Sodium 100 MG Cap PO ONE (08:05)
[2022-02-04] MEDS ORDERED: Bisacodyl 10 MG Supp RECTAL ONE (08:14)
[2022-02-04] MEDS: Carbidopa/Levodopa 25-100 MG Tab PO SCH ×3 (11:08→19:06)
[2022-02-04] MEDS: atorvaSTATin 20 MG Tab PO SCH (19:06)
[2022-02-04] MEDS: Latanoprost 0.005% Ophth Soln 2.5 ML Bottle EYEBOTH SCH (19:07)
[2022-02-05] MEDS: Azithromycin 500 MG in Sodium Chloride 0.9% 250 ML IV SCH (00:06)
[2022-02-05] MEDS: Pantoprazole 40 MG Tab.CR PO SCH (06:00)
[2022-02-05] MEDS: Acetaminophen 500 MG Tab PO SCH (07:56)
[2022-02-05] MEDS: Metoprolol Succinate 100 MG Tab.ER PO SCH (07:56)
[2022-02-05] MEDS: Furosemide 80 MG Tab PO SCH (07:56)
[2022-02-05] MEDS: Carbidopa/Levodopa 25-100 MG Tab PO SCH ×3 (07:56→19:29)
[2022-02-05] MEDS ORDERED: Multivitamins with Minerals and Iron Liquid ML 240 ML Bottle PO SCH (17:30)
[2022-02-05] MEDS ORDERED: Multivitamin Tab PO ONE (17:30)
[2022-02-05] MEDS ORDERED: Ferrous Sulfate 324 MG Tab.EC PO ONE (17:30)
[2022-02-05] MEDS ORDERED: Azithromycin 500 MG in Sodium Chloride 0.9% 250 ML IV SCH ×2 (19:15→20:00)
[2022-02-05] MEDS: atorvaSTATin 20 MG Tab PO SCH (19:28)
[2022-02-05] MEDS: Latanoprost 0.005% Ophth Soln 2.5 ML Bottle EYEBOTH SCH (19:29)
[2022-02-06] MEDS: Acetaminophen 325 MG Tab PO PRN ×2 (04:29→13:30)
[2022-02-06] MEDS: Pantoprazole 40 MG Tab.CR PO SCH (06:00)
[2022-02-06] MEDS: Acetaminophen 500 MG Tab PO SCH (08:28)
[2022-02-06] MEDS: Metoprolol Succinate 100 MG Tab.ER PO SCH (08:28)
[2022-02-06] MEDS: Furosemide 80 MG Tab PO SCH (08:29)
[2022-02-06] MEDS: Carbidopa/Levodopa 25-100 MG Tab PO SCH ×3 (08:29→19:42)
[2022-02-06] MEDS ORDERED: Sodium Chloride 0.9% 250 ML IV ONE (09:30)
[2022-02-06] MEDS ORDERED: Sodium Chloride 0.9% 1,000 ML IV SCH (09:45)
[2022-02-06] MEDS: Albuterol/Ipratropium 3.0-0.5 MG/3 ML Neb Soln NEB SCH ×3 (12:25→19:42)
[2022-02-06] MEDS: Levofloxacin/Dextrose 5%-Water 750 MG in Premix Bag 1 BAG IV SCH (12:36)
[2022-02-06] MEDS: cefTRIAXone 1 GM Vial IVPUSH SCH (15:51)
[2022-02-06] MEDS: Latanoprost 0.005% Ophth Soln 2.5 ML Bottle EYEBOTH SCH (19:42)
[2022-02-06] MEDS: atorvaSTATin 20 MG Tab PO SCH (19:42)
[2022-02-07] MEDS: Acetaminophen 325 MG Tab PO PRN ×2 (03:17→19:31)
[2022-02-07] MEDS: Pantoprazole 40 MG Tab.CR PO SCH (06:00)
[2022-02-07] MEDS: Carbidopa/Levodopa 25-100 MG Tab PO SCH ×3 (07:35→19:31)
[2022-02-07] MEDS: Metoprolol Succinate 100 MG Tab.ER PO SCH (07:35)
[2022-02-07] MEDS: Furosemide 80 MG Tab PO SCH (07:35)
[2022-02-07] MEDS: Albuterol/Ipratropium 3.0-0.5 MG/3 ML Neb Soln NEB SCH ×4 (07:35→19:31)
[2022-02-07] MEDS: Acetaminophen 500 MG Tab PO SCH (07:36)
[2022-02-07] MEDS: Sodium Chloride 0.9% 1,000 ML IV SCH (08:27)
[2022-02-07] MEDS: cefTRIAXone 1 GM Vial IVPUSH SCH (16:21)
[2022-02-07] MEDS: atorvaSTATin 20 MG Tab PO SCH (19:31)
[2022-02-07] MEDS: Latanoprost 0.005% Ophth Soln 2.5 ML Bottle EYEBOTH SCH (19:36)
[2022-02-08] MEDS: Acetaminophen 325 MG Tab PO PRN ×2 (00:14→21:15)
[2022-02-08] MEDS: Sodium Chloride 0.9% 1,000 ML IV SCH (04:09)
[2022-02-08] MEDS: Pantoprazole 40 MG Tab.CR PO SCH (06:02)
[2022-02-08] MEDS: Albuterol/Ipratropium 3.0-0.5 MG/3 ML Neb Soln NEB SCH ×4 (07:47→19:00)
[2022-02-08] MEDS: Metoprolol Succinate 100 MG Tab.ER PO SCH (07:47)
[2022-02-08] MEDS: Furosemide 80 MG Tab PO SCH (07:47)
[2022-02-08] MEDS: Acetaminophen 500 MG Tab PO SCH (07:48)
[2022-02-08] MEDS: Carbidopa/Levodopa 25-100 MG Tab PO SCH ×3 (07:48→19:00)
[2022-02-08] MEDS ORDERED: Albumin 25% 12.5 GM/50 ML Bag IV ONE (09:04)
[2022-02-08] MEDS: Levofloxacin/Dextrose 5%-Water 750 MG in Premix Bag 1 BAG IV SCH (11:21)
[2022-02-08] MEDS: cefTRIAXone 1 GM Vial IVPUSH SCH (15:20)
[2022-02-08] MEDS: Latanoprost 0.005% Ophth Soln 2.5 ML Bottle EYEBOTH SCH (19:00)
[2022-02-08] MEDS: atorvaSTATin 20 MG Tab PO SCH (19:00)
[2022-02-09] MEDS: Pantoprazole 40 MG Tab.CR PO SCH (06:03)
[2022-02-09] MEDS: Albuterol/Ipratropium 3.0-0.5 MG/3 ML Neb Soln NEB SCH (07:50)
[2022-02-09] MEDS: Acetaminophen 500 MG Tab PO SCH (07:53)
[2022-02-09] MEDS: Furosemide 80 MG Tab PO SCH (07:53)
[2022-02-09] MEDS: Metoprolol Succinate 100 MG Tab.ER PO SCH (07:54)
[2022-02-09] MEDS: Carbidopa/Levodopa 25-100 MG Tab PO SCH (07:54)
[2022-02-09 07:56] VITALS: BP 160/62; PULSE 60
[2022-02-09] MEDS ORDERED: Multivitamins with Iron/Calcium/Folic Acid/Minerals Tab PO SCH (17:30)
== END 2022-02-09 11:49 | disposition home or self-care (01) | DRG 871 ==
LOC: CC.ED 22:40 → CC.MS 02-03 00:18 → UNDOADMIN 02-03 00:18 → CC.MS 02-03 00:44
PROVIDERS: ADMIT Nurse Practitioner Family; ATTEND Nurse Practitioner Family
PROC: 30233N1 Transfusion of Nonautologous Red Blood Cells into Peripheral Vein, Percutaneous Approach (ICD-10-PCS; principal; 2022-02-03)
DX: A41.9 Sepsis, unspecified organism (principal); J18.9 Pneumonia, unspecified organism; L03.115 Cellulitis of right lower limb; D64.9 Anemia, unspecified; N18.4 Chronic kidney disease, stage 4 (severe); D63.1 Anemia in chronic kidney disease; D69.6 Thrombocytopenia, unspecified; E88.09 Other disorders of plasma-protein metabolism, not elsewhere classified; Z20.822 Contact with and (suspected) exposure to COVID-19; Z66 Do not resuscitate; I50.9 Heart failure, unspecified; L89.321 Pressure ulcer of left buttock, stage 1; L89.311 Pressure ulcer of right buttock, stage 1; E80.6 Other disorders of bilirubin metabolism; I13.0 Hypertensive heart and chronic kidney disease with heart failure and stage 1 through stage 4 chronic kidney disease, or unspecified chronic kidney disease; Z98.42 Cataract extraction status, left eye; Z98.41 Cataract extraction status, right eye; Z79.1 Long term (current) use of non-steroidal anti-inflammatories (NSAID); Z79.52 Long term (current) use of systemic steroids; Z90.49 Acquired absence of other specified parts of digestive tract; Z95.5 Presence of coronary angioplasty implant and graft; Z87.11 Personal history of peptic ulcer disease; Z95.810 Presence of automatic (implantable) cardiac defibrillator; M10.9 Gout, unspecified; Z88.0 Allergy status to penicillin; Z88.8 Allergy status to other drugs, medicaments and biological substances; Z79.01 Long term (current) use of anticoagulants; Z87.19 Personal history of other diseases of the digestive system; Z79.899 Other long term (current) drug therapy
CPT/HCPCS: 36415; 36430; 71045; 71250; 74176; 80053; 81001; 83605; 83735; 83880; 85025; 85610; 86850; 86900; 86901; 86920; 86922; 87040; 93005; 93010; 94640; 96374; 97110-GP; 97161-GP; 99223; 99232; 99233; 99238; 99285-25; A9270-GY; C9113; J0456; J0696; J1940; J1956; J7030; J7050; J7620-GY; P9016; P9047; U0002

== ENCOUNTER 2023-02-17 09:04 | Inpatient (IN) | payer MEDICARE, OTHER, MEDICAID ==
[2023-02-17 10:29] LABS: CORONAVIRUS COVID-19 NAA NEGATIVE (NEGATIVE); RESPIRATORY SYNCYTIAL VIR NAA NEGATIVE (NEGATIVE)
[2023-02-17] MEDS ORDERED: Azithromycin 500 MG in Sodium Chloride 0.9% 250 ML IV STA (13:06)
[2023-02-17] MEDS ORDERED: Albuterol/Ipratropium 3.0-0.5 MG/3 ML Neb Soln NEB PRN (13:06)
[2023-02-17] MEDS ORDERED: cefTRIAXone 1 GM Vial IVPUSH STA (13:06)
[2023-02-17] MEDS ORDERED: Docusate Sodium 100 MG Cap PO PRN (13:06)
[2023-02-17] MEDS ORDERED: Polyethylene Glycol 3350 Powder 17 GM Packet PO PRN (13:06)
[2023-02-17] MEDS ORDERED: Acetaminophen 325 MG Tab PO PRN ×2 (13:06→13:40)
[2023-02-17] MEDS ORDERED: Ondansetron 4 MG Tab.DIS PO PRN (13:06)
[2023-02-17] MEDS: Albuterol/Ipratropium 3.0-0.5 MG/3 ML Neb Soln NEB SCH ×2 (15:24→19:40)
[2023-02-17] MEDS: Carbidopa/Levodopa 25-100 MG Tab PO SCH ×2 (15:24→19:40)
[2023-02-17] MEDS: Furosemide 40 MG Tab PO SCH (15:24)
[2023-02-17] MEDS: Latanoprost 0.005% Ophth Soln 2.5 ML Bottle EYEBOTH SCH (19:40)
[2023-02-17] MEDS: Potassium Chloride 10 MEQ Tab.ER PO SCH (19:40)
[2023-02-17] MEDS: Furosemide 80 MG Tab PO SCH (19:40)
[2023-02-17] MEDS: atorvaSTATin 20 MG Tab PO SCH (19:40)
[2023-02-17] MEDS: Polyvinyl Alcohol 1.4% Ophth Soln 15 ML Bottle EYEBOTH SCH (19:41)
[2023-02-18] MEDS: Potassium Chloride 10 MEQ Tab.ER PO SCH ×2 (08:29→19:32)
[2023-02-18] MEDS: Allopurinol 100 MG Tab PO SCH (08:29)
[2023-02-18] MEDS: amLODIPine 2.5 MG Tab PO SCH (08:29)
[2023-02-18] MEDS: Acetaminophen 500 MG Tab PO SCH (08:30)
[2023-02-18] MEDS: Citalopram 10 MG Tab PO SCH (08:31)
[2023-02-18] MEDS: Albuterol/Ipratropium 3.0-0.5 MG/3 ML Neb Soln NEB SCH ×4 (08:31→19:33)
[2023-02-18] MEDS: Magnesium Chloride 64 MG Tab.ER PO SCH (08:31)
[2023-02-18] MEDS: Calcium Carbonate/Vitamin D3 1250 MG-5 MCG Tab PO SCH (08:31)
[2023-02-18] MEDS: Multivitamins with Iron/Calcium/Folic Acid/Minerals Tab PO SCH (08:31)
[2023-02-18] MEDS: Metoprolol Succinate 100 MG Tab.ER PO SCH (08:31)
[2023-02-18] MEDS: Carbidopa/Levodopa 25-100 MG Tab PO SCH ×3 (08:32→19:32)
[2023-02-18] MEDS: Furosemide 40 MG Tab PO SCH (08:34)
[2023-02-18] MEDS: Polyvinyl Alcohol 1.4% Ophth Soln 15 ML Bottle EYEBOTH SCH ×2 (08:34→19:38)
[2023-02-18] MEDS: cefTRIAXone 1 GM Vial IVPUSH SCH (13:16)
[2023-02-18] MEDS: Azithromycin 500 MG in Sodium Chloride 0.9% 250 ML IV SCH (13:17)
[2023-02-18] MEDS: Psyllium Husk Powder Sugar Free 5.85 GM Packet PO SCH (18:31)
[2023-02-18] MEDS: Furosemide 80 MG Tab PO SCH (19:30)
[2023-02-18] MEDS: atorvaSTATin 20 MG Tab PO SCH (19:32)
[2023-02-18] MEDS: Latanoprost 0.005% Ophth Soln 2.5 ML Bottle EYEBOTH SCH (19:35)
[2023-02-19] MEDS: Acetaminophen 500 MG Tab PO SCH (08:06)
[2023-02-19] MEDS: Calcium Carbonate/Vitamin D3 1250 MG-5 MCG Tab PO SCH (08:07)
[2023-02-19] MEDS: Potassium Chloride 10 MEQ Tab.ER PO SCH ×2 (08:07→19:58)
[2023-02-19] MEDS: Multivitamins with Iron/Calcium/Folic Acid/Minerals Tab PO SCH (08:08)
[2023-02-19] MEDS: Carbidopa/Levodopa 25-100 MG Tab PO SCH ×3 (08:08→19:59)
[2023-02-19] MEDS: Magnesium Chloride 64 MG Tab.ER PO SCH (08:08)
[2023-02-19] MEDS: Citalopram 10 MG Tab PO SCH (08:08)
[2023-02-19] MEDS: Allopurinol 100 MG Tab PO SCH (08:23)
[2023-02-19] MEDS: Metoprolol Succinate 100 MG Tab.ER PO SCH (08:24)
[2023-02-19] MEDS: amLODIPine 2.5 MG Tab PO SCH (08:24)
[2023-02-19] MEDS: Polyvinyl Alcohol 1.4% Ophth Soln 15 ML Bottle EYEBOTH SCH ×2 (08:46→19:58)
[2023-02-19] MEDS: Psyllium Husk Powder Sugar Free 5.85 GM Packet PO SCH (08:47)
[2023-02-19] MEDS: Albuterol/Ipratropium 3.0-0.5 MG/3 ML Neb Soln NEB SCH ×4 (08:48→19:59)
[2023-02-19] MEDS ORDERED: Menthol/Zinc Oxide Ointment 113 GM Tube TOP PRN (10:06)
[2023-02-19] MEDS: cefTRIAXone 1 GM Vial IVPUSH SCH (12:55)
[2023-02-19] MEDS: Azithromycin 500 MG in Sodium Chloride 0.9% 250 ML IV SCH (13:23)
[2023-02-19] MEDS: Nystatin Topical Powder 15 GM Bottle TOP SCH ×2 (14:16→19:59)
[2023-02-19] MEDS: Furosemide 80 MG Tab PO SCH (19:59)
[2023-02-19] MEDS: atorvaSTATin 20 MG Tab PO SCH (19:59)
[2023-02-19] MEDS: Latanoprost 0.005% Ophth Soln 2.5 ML Bottle EYEBOTH SCH (20:04)
[2023-02-20 07:56] VITALS: BP 142/57; PULSE 60
[2023-02-20] MEDS: Albuterol/Ipratropium 3.0-0.5 MG/3 ML Neb Soln NEB SCH ×2 (08:05→11:30)
[2023-02-20] MEDS: Multivitamins with Iron/Calcium/Folic Acid/Minerals Tab PO SCH (08:05)
[2023-02-20] MEDS: Acetaminophen 500 MG Tab PO SCH (08:05)
[2023-02-20] MEDS: Magnesium Chloride 64 MG Tab.ER PO SCH (08:05)
[2023-02-20] MEDS: Calcium Carbonate/Vitamin D3 1250 MG-5 MCG Tab PO SCH (08:06)
[2023-02-20] MEDS: amLODIPine 2.5 MG Tab PO SCH (08:06)
[2023-02-20] MEDS: Citalopram 10 MG Tab PO SCH (08:07)
[2023-02-20] MEDS: Carbidopa/Levodopa 25-100 MG Tab PO SCH (08:07)
[2023-02-20] MEDS: Allopurinol 100 MG Tab PO SCH (08:07)
[2023-02-20] MEDS: Metoprolol Succinate 100 MG Tab.ER PO SCH (08:07)
[2023-02-20] MEDS: Polyvinyl Alcohol 1.4% Ophth Soln 15 ML Bottle EYEBOTH SCH (08:10)
[2023-02-20] MEDS: Nystatin Topical Powder 15 GM Bottle TOP SCH (08:11)
[2023-02-20] MEDS: Psyllium Husk Powder Sugar Free 5.85 GM Packet PO SCH (08:11)
[2023-02-20] MEDS ORDERED: Azithromycin 500 MG in Sodium Chloride 0.9% 250 ML IV STA (08:37)
[2023-02-20] MEDS ORDERED: cefTRIAXone 1 GM Vial IVPUSH ONE (08:37)
[2023-02-20] MEDS ORDERED: Azithromycin 500 MG Vial ONE (08:44)
[2023-02-20] MEDS: Potassium Chloride 10 MEQ Tab.ER PO SCH (08:57)
== END 2023-02-20 11:45 | disposition home or self-care (01) | DRG 602 ==
LOC: CC.ED 09:04 → CC.MS 11:30
PROVIDERS: ADMIT Nurse Practitioner Family; ATTEND Nurse Practitioner Family
DX: L03.114 Cellulitis of left upper limb (principal); R09.02 Hypoxemia; J18.9 Pneumonia, unspecified organism; I13.0 Hypertensive heart and chronic kidney disease with heart failure and stage 1 through stage 4 chronic kidney disease, or unspecified chronic kidney disease; N18.4 Chronic kidney disease, stage 4 (severe); I48.91 Unspecified atrial fibrillation; N17.9 Acute kidney failure, unspecified; I50.9 Heart failure, unspecified; E87.70 Fluid overload, unspecified; Z20.822 Contact with and (suspected) exposure to COVID-19; M10.9 Gout, unspecified; D63.1 Anemia in chronic kidney disease; Z95.5 Presence of coronary angioplasty implant and graft; Z95.810 Presence of automatic (implantable) cardiac defibrillator; Z96.649 Presence of unspecified artificial hip joint; Z79.01 Long term (current) use of anticoagulants; Z79.899 Other long term (current) drug therapy; Z95.0 Presence of cardiac pacemaker; Z98.49 Cataract extraction status, unspecified eye; Z90.49 Acquired absence of other specified parts of digestive tract; Z98.890 Other specified postprocedural states
CPT/HCPCS: 0241U; 36415; 71045; 80053; 81001; 82270; 82272; 83880; 85025; 85610; 87040; 94640; 97110-GP; 97161-GP; 99223; 99232; 99233; 99238; 99285; A9270-GY; J0456; J0696; J7050; J7620-GY